=== PATIENT | female | born 1990 | race American Indian/Alaskan Native ===

== ENCOUNTER 2017-10-21 18:50 | Emergency (ER) | payer SELFPAY ==
[2017-10-21 19:24] VITALS: BP 143/94
[2017-10-21 20:10] LABS: HCG Qualitative,Urine Negative (Negative)
[2017-10-21 21:07] LABS: Bacteria,Urine 2+ /HPF (Negative); Bilirubin,Urine NEG (Negative); Blood,Urine NEG (Negative); Color,Urine Yellow (Yellow); Mucus,Urine 3+ /HPF; Protein,Urine <15 mg/dL mg/dL (Negative)
--- NOTE | 2017-10-21 23:00 | Emergency Department Report ---
Chief Complaint: Urogenital-Female Stated Complaint: CRAMPS/DISCHARGE Time Seen by Provider: 10/21/17 22:56 - HPI History of Present Illness: 26-year-old -[place] female comes in reporting she has vaginal discharge with an odor for a few days. She denies any fever or chills no nausea no no dysuria, no vomiting denies no pain at all. - Exam Vital Signs: Vital Signs 10/21/17 19:18 Temperature 98.9 F Pulse Rate 88 Respiratory 16 Rate Blood Pressure 143/94 O2 Sat by Pulse 100 Oximetry Physical Exam: Patient is alert and oriented 3. No acute distress well nourished well developed Cardiovascular S1-S2 regular rate and rhythm Lungs clear to auscultation bilateral Abdomen soft nontender nondistended MSE screening note: Focused history and physical exam performed. Due to findings the following was ordered: Patient is stable to be discharged with follow-up to [facility] or primary care. ED Disposition for MSE Condition: Stable Referrals: BROOKE STEVENS MD [Primary Care Provider] - 3-5 Days
== END 2017-10-21 22:58 | disposition left against medical advice (07) ==
LOC: ED 18:50
DX: N89.8 Other specified noninflammatory disorders of vagina (principal); Z53.21 Procedure and treatment not carried out due to patient leaving prior to being seen by health care provider
CPT/HCPCS: 81001; 81025; 87086; 87591; 99283